=== PATIENT | female | born 1985 | race American Indian/Alaskan Native ===

== ENCOUNTER 2017-04-05 20:41 | Inpatient (IN) | payer SELFPAY ==
[2017-04-05 22:00] LABS: Hematocrit 38.5 % (30.3-42.9); Mean Corpuscular HGB Conc 34 % (30-34); Mean Corpuscular Hemoglobin 32 pg (28-32); Mean Corpuscular Volume 94 fl (79-97); Platelet Count 321 K/mm3 (140-440); Red Blood Count 4.11 M/mm3 (3.65-5.03); Red Cell Distribution Width 13.7 % (13.2-15.2); White Blood Count 10.3 K/mm3 (4.5-11.0)
[2017-04-05 22:41] LABS: Anisocytosis 1+; Basophils % (Manual) 0 % (0.0-1.8); Blastocytes % (Manual) 0 %; Eosinophils % (Manual) 0 % (0.0-4.3)
[2017-04-05 22:42] LABS: Diff Status Complete; Macrocytosis 1+; Platelet Estimate Consistent w Auto
[2017-04-05] MEDS ORDERED: TYLENOL PO ONE (23:14)
--- NOTE | 2017-04-05 23:19 | Emergency Department Report ---
HPI - General Chief Complaint: Vaginal Bleeding Time Seen by Provider: 04/05/17 22:46 - HPI HPI: Room 7 The patient is a 31-year-old female presenting with chief complaint of vaginal bleeding. The patient states she is approximately 11 weeks gestational age by LMP. Patient states she took a positive test but has not yet seen a sedimentationist for this . The patient states yesterday she started having some vaginal spotting and then today having vaginal bleeding going through approximately 3 pads so far today. Patient states she's had waxing and waning lower abdominal cramping Location: Pelvis Duration: [see above] Quality: Cramping Severity: Moderate Modifying factors: [see above] Context: [see above] Mode of transportation: [not driving] ED Past Medical Hx - Past Medical History Previous Medical History?: No - Surgical History Past Surgical History?: No - Family History Family history: no significant - Social History Smoking Status: Current Every Day Smoker (1/4 pack per day) Substance Use Type: None (denies illicit drug use), Alcohol (frequently) - Medications Home Medications: Home Medications Medication Instructions Recorded Confirmed Last Taken Type No Known Home Medications [No 04/05/17 04/05/17 Unknown History Reported Home Medications] ED Review of Systems ROS: Stated complaint: VAGINAL BLEEDING Other details as noted in HPI Comment: All other systems reviewed and negative Constitutional: denies: chills, fever Eyes: denies: eye pain, eye discharge, vision change ENT: denies: ear pain, throat pain Respiratory: denies: cough, shortness of breath, wheezing Cardiovascular: denies: chest pain, palpitations Endocrine: no symptoms reported Gastrointestinal: abdominal pain Genitourinary: abnormal menses Musculoskeletal: denies: back pain, joint swelling, arthralgia Skin: denies: rash, lesions Neurological: denies: headache, weakness, paresthesias Psychiatric: denies: anxiety, depression Hematological/Lymphatic: denies: easy bleeding, easy bruising Physical Exam - Physical Exam Vital Signs: Vital Signs 04/05/17 04/05/17 21:24 22:23 Temperature 98.1 F 98 F Pulse Rate 70 70 Respiratory 16 18 Rate Blood Pressure 124/79 Blood Pressure 124/79 133/85 [Left] O2 Sat by Pulse 100 100 Oximetry Physical Exam: GENERAL: The patient is well-developed well-nourished female lying on stretcher not appearing to be in acute distress. [] HEENT: Normocephalic. Atraumatic. Extraocular motions are intact. Patient has moist mucous membranes. NECK: Supple. Trachea midline CHEST/LUNGS: Clear to auscultation. There is no respiratory distress noted. HEART/CARDIOVASCULAR: Regular. There is no tachycardia. There is no gallop rub or murmur. ABDOMEN: Abdomen is soft, nontender. Patient has normal bowel sounds. There is no abdominal distention. SKIN: There is no rash. There is no edema. There is no diaphoresis. NEURO: The patient is awake, alert, and oriented. The patient is cooperative. The patient has normal speech MUSCULOSKELETAL: There is no evidence of acute injury. PELVIC: Moderate to large amount of blood in the vaginal vault. Os not visualized. 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 Cordova as Dr. Cordova is actively delivering a baby. Will call back 04/06/17 01:[address] Cordova-states she will admit the patient to mother-baby and anticipate D&C tomorrow ED Medical Decision Making - Lab Data Result diagrams: 04/05/17 21:46 Laboratory Tests 04/05/17 04/05/17 04/05/17 21:46 21:46 21:51 WBC 10.3 RBC 4.11 Hgb 13.0 Hct 38.5 MCV 94 MCH 32 MCHC 34 RDW 13.7 Plt Count 321 Lymph # [employer] Supervisor Add Manual Diff Complete Total Counted 100 Seg Neuts % (Manual) 44.0 Band Neutrophils % 0 Lymphocytes % (Manual) 47.0 H Reactive Lymphs % (Man) 0 Monocytes % (Manual) 9.0 H Eosinophils % (Manual) 0 Basophils % (Manual) 0 Metamyelocytes % 0 Myelocytes % 0 Promyelocytes % 0 Blast Cells % 0 Nucleated RBC % Not Reportable Seg Neutrophils # Man 4.5 Band Neutrophils # 0.0 Lymphocytes # (Manual) 4.8 Abs React Lymphs (Man) 0.0 Monocytes # (Manual) 0.9 H Eosinophils # (Manual) 0.0 Basophils # (Manual) 0.0 Metamyelocytes # 0.0 Myelocytes # 0.0 Promyelocytes # 0.0 Blast Cells # 0.0 WBC Morphology Not Reportable Hypersegmented Neuts Not Reportable Hyposegmented Neuts Not Reportable Hypogranular Neuts Not Reportable Smudge Cells Not Reportable Toxic Granulation Not Reportable Toxic Vacuolation Not Reportable Dohle Bodies Not Reportable Pelger-Huet Anomaly Not Reportable Philomena Rods Not Reportable Platelet Estimate Consistent w auto Clumped Platelets Not Reportable Plt Clumps, EDTA Not Reportable Large Platelets Not Reportable Giant Platelets Not Reportable Platelet Satelliting Not Reportable Plt Morphology Comment Not Reportable RBC Morphology Not Reportable Dimorphic RBCs Not Reportable Polychromasia Not Reportable Hypochromasia Not Reportable Poikilocytosis Not Reportable Anisocytosis 1+ Microcytosis Not Reportable Macrocytosis 1+ Spherocytes Not Reportable Pappenheimer Bodies Not Reportable Sickle Cells Not Reportable Target Cells Not Reportable Tear Drop Cells Not Reportable Ovalocytes Not Reportable Helmet Cells Not Reportable Hester-Melrose Bodies Not Reportable [place] Rings Not Reportable Renetta Cells Not Reportable Bite Cells Not Reportable Crenated Cell Not Reportable Elliptocytes Not Reportable Acanthocytes (Spur) Not Reportable Rouleaux Not Reportable Hemoglobin C Crystals Not Reportable Schistocytes Not Reportable Malaria parasites Not Reportable Bebo Bodies Not Reportable Hem Pathologist Commnt No HCG, Quant 811.2 H Blood Type B POSITIVE Antibody Screen TNR KAYLA Antibody Screen Negative - Radiology Data Radiology results: report reviewed (pelvic ultrasound), image reviewed (pelvic ultrasound) Pelvic ultrasound (read by radiologist)-gestational sac visualized in the endometrial canal. There appears to be evidence of intrauterine demise. I mean gestational sac measurement estimated age should be 10 weeks 3 days. OB/ TABULAR TYPIST consultation is suggested. - Differential Diagnosis threatened , spontaneous , missed Critical care attestation.: If time is entered above; I have spent that time in minutes in the direct care of this critically ill patient, excluding procedure time. ED Disposition Clinical Impression: Spontaneous , demise Disposition: 09 OP ADMIT IP TO THIS HOSP Is pt being admited?: Yes Does the pt Need Aspirin: No Condition: Fair Referrals: PRIMARY CARE, [Primary Care Provider] - 3-5 Days Time of Disposition: 01:51
--- NOTE | 2017-04-05 23:45 | Ultrasound Report ---
FINAL REPORT PROCEDURE: US OB \T\lt; = 14 WEEKS FETUS TECHNIQUE: Real-time transabdominal sonography of the uterus, placenta, amniotic fluid, adnexa, and fetus was performed with image documentation. Measurements were obtained to determine age/size. M-mode Doppler was used to document heartbeat. CPT 43951 HISTORY: vaginal bleeding COMPARISON: No prior studies are available for comparison. FINDINGS: Report from this exam was generated using images from both the transabdominal and a transvaginal OB ultrasound both of which were performed today. There is a gestational sac seen in the endometrial canal with a mean gestational sac diameter 4.7 centimeter corresponding to an age of 10 weeks 3 days. There is a small linear density dependently in the gestational sac. This measures approximately 5.7 millimeter. No heartbeat or yolk sac are visualized. No evidence of subchorionic hemorrhage. No uterine masses are identified. The left ovary was not visualized. No abnormal adnexal masses are seen on the left. The right ovary shows no abnormality measuring 3.0 x 1.9 x 2.4 centimeter. IMPRESSION: Gestational sac visualized in the endometrial canal. There appears to be evidence of intrauterine demise. By mean gestational sac measurement estimated age should be 10 weeks 3 days. OBGYN consultation is suggested. Right ovary is visualized and unremarkable. Left ovary was not visualized.
--- NOTE | 2017-04-05 23:47 | Ultrasound Report ---
FINAL REPORT PROCEDURE: US OB TRANSVAGINAL TECHNIQUE: Real-time transvaginal sonography of the uterus, placenta, amniotic fluid, adnexa, and fetus was performed with image documentation. Measurements were obtained to determine age/size. M-mode Doppler was used to document heartbeat. CPT 10868 HISTORY: vaginal bleeding COMPARISON: Transabdominal OB ultrasound performed earlier today. FINDINGS: Report from this exam was generated using images from both the transabdominal and a transvaginal OB ultrasound both of which were performed today. There is a gestational sac seen in the endometrial canal with a mean gestational sac diameter 4.7 centimeter corresponding to an age of 10 weeks 3 days. There is a small linear density dependently in the gestational sac. This measures approximately 5.7 millimeter. No heartbeat or yolk sac are visualized. No evidence of subchorionic hemorrhage. No uterine masses are identified. The left ovary was not visualized. No abnormal adnexal masses are seen on the left. The right ovary shows no abnormality measuring 3.0 x 1.9 x 2.4 centimeter. IMPRESSION: Gestational sac visualized in the endometrial canal. There appears to be evidence of intrauterine demise. By mean gestational sac measurement estimated age should be 10 weeks 3 days. OBGYN consultation is suggested. Right ovary is visualized and unremarkable. Left ovary was not visualized.
[2017-04-06] MEDS ORDERED: MORPHINE IV PRN (04:28)
[2017-04-06] MEDS ORDERED: DOXYCYCLINE HYCLATE 100 MG in NACL 0.9% 250ML 250 ML IV ONE (06:00)
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
[2017-04-06 08:21] LABS: Bacteria,Urine 1+ /HPF (Negative); Bilirubin,Urine NEG (Negative); Blood,Urine LG (Negative); Ketones,Urine 20 mg/dL (Negative); Leukocyte Esterase,Urine NEG (Negative); Mucus,Urine 3+ /HPF; Nitrite,Urine NEG (Negative); Urobilinogen,Urine < 2.0 mg/dL (<2.0)
[2017-04-06 08:22] LABS: RBC,Urine > 182.0 /HPF (0.0-6.0)
[2017-04-06] MEDS ORDERED: XYLOCAINE MPF 2% ONE (08:50)
[2017-04-06] MEDS ORDERED: DIPRIVAN 10 MG/ML IV ONE (08:50)
[2017-04-06] MEDS ORDERED: DILAUDID ONE (08:50)
[2017-04-06] MEDS ORDERED: METHERGINE IM ONE (09:29)
[2017-04-06] MEDS ORDERED: LACTATED RINGERS 1,000 ML ONE ×2 (09:38→10:40)
[2017-04-06] MEDS ORDERED: ZOFRAN ONE (09:41)
[2017-04-06] MEDS ORDERED: DECADRON ONE (09:41)
--- NOTE | 2017-04-06 10:14 | Post Operative Note ---
Pre-op diagnosis: Incomplete at 10 wks Post-op diagnosis: same Findings: Small retroverted uterus that sounded to 9 cm. Cervical os 1 cm dilated prior to the procedure Procedure: Suction dilation and curettage Anesthesia: GETA (with LMA ) Surgeon: SOFIA LINDA Estimated blood loss: other (150 mL) Pathology: list (products of conception) Specimen disposition: to lab Condition: stable Disposition: PACU
--- NOTE | 2017-04-06 10:23 | Anesthesia Day of Surgery ---
Anesthesia Day of Surgery - Day of Surgery Patient Examined: Yes Patient H&P Reviewed: Yes Patient is NPO: Yes
--- NOTE | 2017-04-06 10:23 | Anesthesia Consultation ---
Anesthesia Consult and Med Hx - Airway Anesthetic Teeth Evaluation: Good ROM Head & Neck: Adequate Mental/Hyoid Distance: Adequate Mallampati Class: Class II Intubation Access Assessment: Probably Good - Pulmonary Exam CTA: Yes - Cardiac Exam Cardiac Exam: RRR - Pre-Operative Health Status ASA Pre-Surgery Classification: ASA2 Proposed Anesthetic Plan: General (no previous problems with GA) - Pulmonary Hx Smoking: Yes (3-4 cig per day) Hx Asthma: No COPD: No Hx Pneumonia: No - Endocrine Hx End Stage Renal Disease: No - Additional Comments Anesthesia Medical History Comments: Blighted ovum for Sution D&C
--- NOTE | 2017-04-06 10:26 | Operative Report ---
Operative Report Operative Report: Date of Procedure: April 06, 2017 Preoperative diagnosis: Incomplete at 10 wks Postoperative diagnosis: Same Procedure: Suction dilation of curettage Surgeon: Kathleen Cordova MD Anesthesia: General with LMA Findings: 1) Small retroverted uterus that sounded to 9 cm. 2) Cervical os 1 cm dilated prior to the procedure EBL: 150 mL IVF: 600 mL Urine output: 50 mL, clear at the end of the procedure Specimen: products of conception to pathology Medications: Methergine 0.2 mg IM Drains: None Complications: None Disposition: Stable to PACU Indications for Procedure: Pt is a 31 year old at 12 wks by LMP who presents for surgical management of incomplete of suspected blighted ovum. Procedure in detail: After the risks, benefits, alternatives and complications of the procedure were explained to the patient, she gave informed consent for the procedure. She was subsequently taken to the operating room with her IV noted to be running well and placed in the dorsal supine position. General anesthesia with LMA was induced without difficulty. She was then placed in the dorsal lithotomy position. An exam under anesthesia a retroverted mobile uterus with the cervix 1 cm dilated. She was then prepped and draped in a normal sterile fashion. A timeout was then performed. A rubber catheter was first used to drain the bladder of 50 mL of concentrated but clear urine. An open-sided bivalve speculum was placed in the vagina to visualize the cervix. A single-tooth tenaculum was placed on the anterior lip of the cervix for traction. The uterus was then gently sounded to 9 cm. The cervix was sufficiently dilated to accommodate a #29 Ruiz dilator. A number 10 rigid curette was connected to suction and used to perform a curettage of the uterus. A sharp curette was used to confirm that the uterine cavity was gritty x 4. Methergine 0.2 mg IM was administered. All instruments were removed from the uterus. The single-tooth tenaculum was removed from the cervix. Hemostasis of the tenaculum puncture sites was achieved with pressure. At this time all instruments were removed from the vagina and the procedure was ended. The patient was placed in the dorsal supine position and extubated without difficulty. She was then taken to the PACU in stable condition. All instrument and raytec counts were correct x 2.
[2017-04-06] MEDS ORDERED: PERCOCET 5/325 PO PRN (10:29)
[2017-04-06] MEDS ORDERED: MOTRIN PO PRN (10:29)
--- NOTE | 2017-04-06 10:35 | Discharge Summary ---
Providers - Providers Date of Admission: 04/06/17 01:48 Date of discharge: 04/06/17 Attending physician: SOFIA LINDA Primary care physician: HOISTER Hospitalization Reason for admission: other (incomplete ) Delivery: other Procedure details: Please see operative note. Suction dilation and curettage. Discharge diagnosis: other (Incomplete ) Hospital course: The patient was admitted through the emergency room for an incomplete . She went on to have a suction dilation and curettage she tolerated well. She was observed in the PACU and on the floor and subsequently discharged home on the day of surgery. She will return to the office for follow-up on April 21, 2017. Condition at discharge: Fair Disposition: DC-01 TO HOME OR SELFCARE - Discharge Diagnoses (1) Spontaneous Status: Acute Plan - Discharge Medications Prescriptions: Ferrous Sulfate [Feosol 325 MG tab] 325 mg PO BID #60 tablet Ibuprofen [Motrin 800 MG tab] 800 mg PO Q8HR PRN #30 tablet PRN Reason: Pain Methylergonovine [Methergine] 0.2 mg PO Q8HR #6 tablet oxyCODONE /ACETAMINOPHEN [Percocet 5/325] 1 tab PO Q6HR PRN #20 tablet PRN Reason: Pain - Provider Discharge Summary Activity: routine, no sex for 6 weeks, no heavy lifting 4 weeks, no strenuous exercise Diet: routine Instructions: routine Additional instructions: [] Smoking cessation referral if applicable(refer to patient education folder for contact #) [] Refer to [facility] Booklet Call your doctor immediately for: * Fever > 100.5 * Heavy vaginal bleeding ( >1 pad per hour) * Severe persistent headache * Shortness of breath * Reddened, hot, painful area to leg or breast * Drainage or odor from incision. * Keep incision clean and dry at all times and follow doctor's instructions regarding bathing/showering - Follow up plan Follow up: JAKOB CHAUHAN MD [Primary Care Provider] - 3-5 Days SOFIA LINDA MD [Staff Physician] - 04/21/17 (please call the office for an appointment. The new address is [address] [place] [id number] )
--- NOTE | 2017-04-06 17:29 | Post Anesthesia Evaluation ---
- Post Anesthesia Evaluation Patient Participated: Yes Airway Patent: Yes Stable Respiratory Function: Yes Nausea/Vomiting: No Temp > 96.8F: Yes Pain Manageable: Yes Adequeate Hydration: Yes Anesthesia Complications: No
[2017-04-06 18:08] VITALS: BP 111/63
== END 2017-04-06 16:35 | disposition home or self-care (01) | DRG 770 ==
LOC: ED 20:41 → OB 04-06 01:48
PROVIDERS: ADMIT Obstetrics & Gynecology; ATTEND Obstetrics & Gynecology
PROC: 10D17ZZ Extraction of Products of Conception, Retained, Via Natural or Artificial Opening (ICD-10-PCS; principal; 2017-04-06)
DX: O03.4 Incomplete spontaneous abortion without complication (principal); O02.0 Blighted ovum and nonhydatidiform mole; F17.210 Nicotine dependence, cigarettes, uncomplicated; S42.001A Fracture of unspecified part of right clavicle, initial encounter for closed fracture; Z3A.12 12 weeks gestation of pregnancy
CPT/HCPCS: 36415; 76801; 76817; 81001; 84702; 85007; 85025; 86850; 86900; 86901; 88305; J1100; J1170; J2210; J2270; J2405; J2704; J7050; J7120